=== PATIENT | male | born 1960 | race Two or more races ===

== ENCOUNTER 2017-04-07 17:54 | Emergency (ER) | payer OTHER ==
[~2017-04-07] VITALS: Ht 172.7 cm; Wt 102.1 kg
[~2017-04-07 17:54] MED LIST: ASPI-1169 PO; CARV12.5 PO; DIVA500T2 PO; DOCU-141 PO; DOXA8TAB79 PO; HYDR-552 PO; LEVE750T4 PO; LEVO750T21 PO; LORA-259 PO; PRAV20TA PO
--- NOTE | 2017-04-07 18:29 | NUR ---
DR ALANIZ ON THE PHONE WITH THE NURSE AT [facility] REGARDING WHY PATIENT WAS BROUGHT TO THE EMERGENCY ROOM.
--- NOTE | 2017-04-07 18:44 | NUR ---
RECIEVED PT TO ED BED 04. BB PRIVATE EMS FROM [facility] FOR S/P UNWITNESSED FALL. FELL OFF WHEELCHAIR, LANDED ON HIS HEAD PER REPORT. PT IS A/OX1-2, PT STATED THAT HE PASSED OUT. HE IS COMPLAINING OF BILATERAL ARM PAIN. NAD VSS RR EVEN AND UNLABORED. KEPT WARM AND COMFORTABLE. SEEN AND EVALUATED BY DR ALANIZ
--- NOTE | 2017-04-07 19:01 | NUR ---
RECEIVED REPORT FROM ORLANDO JOSÉ.
--- NOTE | 2017-04-07 19:08 | NUR ---
PT TO CT.
--- NOTE | 2017-04-07 19:20 | NUR ---
PT RETURNED FROM CT.
--- NOTE | 2017-04-07 20:16 | NUR ---
REQUESTED TRANSPORTATION FOR PATIENT WITH [facility], GOING BACK TO SNF
[2017-04-07] MEDS ORDERED: LORAZEPAM 1 MG TABLET PO ONE (21:00)
[2017-04-07] MEDS ORDERED: LORAZEPAM 1 MG TABLET ONE (21:05)
--- NOTE | 2017-04-07 22:09 | NUR ---
REPORT GIVEN TO CHARU PUENTE FOR THANH. PT VSS. PT AWARE OF TRANSFER. PT TO BE TRANSFERRED VIA GURNEY. PT WITH ALL BELONGINGS. D/C PAPERS WITH CHARU. CINDI TOOK OVER CARE
[2017-04-07 22:12] VITALS: BP 104/73
== END 2017-04-07 22:09 | disposition home or self-care (01) ==
LOC: ER 17:58
DX: S09.8XXA Other specified injuries of head, initial encounter (principal); F03.90 Unspecified dementia, unspecified severity, without behavioral disturbance, psychotic disturbance, mood disturbance, and anxiety; I10 Essential (primary) hypertension; Z79.82 Long term (current) use of aspirin; Z88.0 Allergy status to penicillin; W05.0XXA Fall from non-moving wheelchair, initial encounter; Y93.89 Activity, other specified; Y92.89 Other specified places as the place of occurrence of the external cause; Y99.8 Other external cause status
CPT/HCPCS: 70450-TC; 72125-TC; A4606; Z7610

== ENCOUNTER 2020-03-25 13:34 | Inpatient (IN) | payer MEDICAID, OTHER ==
[~2020-03-25] VITALS: Ht 177.8 cm; Wt 90.3 kg
[~2020-03-25 13:34] MED LIST changes: +HYDR-4384 PO; -HYDR-552 PO
--- NOTE | 2020-03-25 13:50 | NUR ---
C/O WEAKNESS X 2 DAYS; EXPOSED TO A POSTIVE COVID PATIENT. PATIENT A/OX2, VERBALLY RESPONSIVE BUT HAS EPISODE OF CONFUSION. 88% ON ROOM AIR. PLACED ON 4LPM VIA NC WITH SPO2 OF 100%. ATTACHED TO THE BUSINESS SUPPORT.
[2020-03-25] MEDS ORDERED: NA P133E RC (14:07)
[2020-03-25] MEDS ORDERED: SENN-175 PO (14:07)
[2020-03-25] MEDS ORDERED: GABA300C PO (14:07)
[2020-03-25] MEDS ORDERED: ACET325T53 PO (14:07)
[2020-03-25] MEDS ORDERED: BISA10SU11 RC (14:07)
[2020-03-25] MEDS ORDERED: FOLI0.8C PO (14:07)
[2020-03-25] MEDS ORDERED: ATOR10TA PO (14:07)
[2020-03-25] MEDS ORDERED: ESCI10TA PO (14:07)
[2020-03-25] MEDS ORDERED: MAGN400O6 PO (14:07)
[2020-03-25] MEDS ORDERED: CYAN-51 PO (14:07)
[2020-03-25] MEDS ORDERED: CLON1TAB PO (14:07)
[2020-03-25] MEDS ORDERED: ACETAMINOPHEN ES 500 MG TABLET ONE (14:27)
[2020-03-25] MEDS ORDERED: ACETAMINOPHEN ES 500 MG TABLET PO ONE (14:30)
[2020-03-25] MEDS ORDERED: IV NS 0.9% 1,000 ML BAG IV ONE (14:30)
[2020-03-25 14:38] LABS: BASOPHILS % (AUTO) 0.5 % (0.0-2.0); EOSINOPHILS % (AUTO) 4.2 % (0.0-6.0); HEMATOCRIT 44 % (39-51); HEMOGLOBIN 14.2 g/dL (13.5-17.5); LYMPHOCYTES # (AUTO) 2.2 /CMM (0.8-4.8); LYMPHOCYTES % (AUTO) 31.6 % (20.0-44.0); MEAN CORPUSCULAR HGB CONC 33 g/dl (31.0-36.0); MEAN CORPUSCULAR VOLUME 102 fL (80-96); MONOCYTES # (AUTO) 0.9 /CMM (0.1-1.30); MONOCYTES % (AUTO) 12.5 % (2.0-12.0); NEUTROPHILS # (AUTO) 3.5 /CMM (1.8-8.9); NEUTROPHILS % (AUTO) 51.2 % (43.0-81.0); PLATELET COUNT (AUTO) 217 /CMM (150-450); RED BLOOD CELL COUNT(AUTO) 4.29 MIL/uL (4.5-6.0); WHITE BLOOD COUNT (AUTO) 6.9 K/uL (4.3-11.0)
[2020-03-25 15:11] LABS: D-DIMER 0.5 mg/L(FEU (0.17-0.50)
--- NOTE | 2020-03-25 15:15 | NUR ---
COVID RESULT NEGATIVE PER MAIN LAB
[2020-03-25] MEDS ORDERED: LEVOFLOXACIN 750 MG /D5W 150ML 150 ML IV ONE (15:29)
[2020-03-25] MEDS ORDERED: LEVOFLOXACIN 750 MG /D5W 150ML PIGGYBACK IV ONE (15:30)
--- NOTE | 2020-03-25 15:38 | NUR ---
CALLED DR. MARTINEZ [phone] PT TO BE PRESENTED TO [facility].
[2020-03-25 15:44] LABS: ALANINE AMINOTRANSFERASE 46 U/L (12-78); ALBUMIN 3.2 g/dL (3.4-5.0); ALKALINE PHOSPHATASE 67 U/L (46-116); ASPARTATE AMINOTRANSFERASE 28 U/L (15-37); B-TYPE NATRIURETIC PEPTIDE 21 PG/ML (0-125); BILIRUBIN,DIRECT 0.1 mg/dL (0.0-0.2); BILIRUBIN,TOTAL 0.3 mg/dL (0.2-1.0); CALCIUM, SERUM 8.9 mg/dL (8.5-10.1); CARBON DIOXIDE 28 mmol/L (21-32); CHLORIDE 106 mmol/L (98-107); CREATININE 1.1 mg/dL (0.6-1.3); GLUCOSE 94 mg/dL (74-106); POTASSIUM 4.6 mmol/L (3.5-5.1); SODIUM SERUM 141 mmol/L (136-145); TOTAL PROTEIN, SERUM 7.5 g/dL (6.4-8.2); UREA NITROGEN, BLOOD 11 mg/dL (7-18)
--- NOTE | 2020-03-25 16:33 | NUR ---
COVID PCR SWAB SENT TO LAB. SKIN CARE PROVIDED. PATIENT HAS TENDENCY TO STRIKE OUT DURING ADL CARE.
[2020-03-25] MEDS ORDERED: DEXAMETHASONE SOD PHOSPHATE 4 MG/ML VIAL IV ONE (17:30)
[2020-03-25] MEDS ORDERED: DEXAMETHASONE SOD PHOSPHATE 10 MG/ML VIAL ONE (17:51)
[2020-03-25] MEDS ORDERED: BISACODYL SUPP (10 MG) 10 MG/SUPP.RECT SUPP.RECT RC PRN (18:00)
[2020-03-25] MEDS ORDERED: ONDANSETRON HCL/PF 4 MG/2 ML VIAL IVP PRN (18:00)
[2020-03-25] MEDS ORDERED: ACETAMINOPHEN 325 MG TABLET PO PRN (18:00)
--- NOTE | 2020-03-25 19:19 | NUR ---
REPORT GIVEN TO BOGDAN PERRY FOR THANH
--- NOTE | 2020-03-25 19:39 | NUR ---
PATIENT AAOX2. PATIENT STATES, "I AM GOOD NOW THAT I HAVE MY MILK. I AM SUPERMAN". PATIENT CURRENTLY HAS NO COMPLAINTS. PATIENT IS BREATHING EVENLY AND UNLABORED ON ROOM AT 94%.
--- NOTE | 2020-03-25 19:46 | NUR ---
UNABLE TO GET BLOOD PRESSURE. PATIENT IS CONSTANTLY MOVING.
[2020-03-25 19:52] LABS: C-REACTIVE PROTEIN 0.5 mg/dL (0.0-0.9)
[2020-03-25] MEDS ORDERED: IV NS 0.9% 1,000 ML IV ONE (20:30)
[2020-03-25] MEDS: CEFTRIAXONE 1 G in IV D5W 50 ML IV SCH (21:34)
--- NOTE | 2020-03-25 21:45 | NUR ---
PATIENT CHANGED INTO NEW GOWN AND PROVIDED WITH CLEAN BED SHEET. PATIENT IS GIVEN BLANKET FOR COMFORT. PATIENT IS BREATHING EVENLY AND UNLABORED ON 4L OF N/C 99%. PATIENT IS CALM. PATIENT NOT IN ANY DISTRESS. WILL CONTINUE TO MONITOR PATIENT CLOSELY.
[2020-03-25] MEDS: GABAPENTIN 300 MG CAPSULE PO SCH (21:58)
[2020-03-25] MEDS ORDERED: CEFTRIAXONE 1GM BAG (ER ONLY) 50 ML IV ONE (22:20)
[2020-03-25] MEDS ORDERED: GABAPENTIN 300 MG CAPSULE ONE (22:22)
[2020-03-25] MEDS ORDERED: ESCITALOPRAM OXALATE (10 MG) 10 MG TABLET ONE (22:23)
[2020-03-25] MEDS: SENNOSIDES 8.6 MG TABLET PO SCH (22:54)
[2020-03-25] MEDS: ESCITALOPRAM OXALATE (10 MG) 10 MG TABLET PO SCH (22:54)
[2020-03-25] MEDS: ATORVASTATIN 10 MG TABLET PO SCH (22:54)
--- NOTE | 2020-03-25 23:57 | NUR ---
PATIENT IS AWAKE, MOVING EXTREMITIES AND YELLING "POW". PATIENT STATES THAT HE IS SHOOTING A GUN AT THE BOX. PATIENT IS BREATHING EVENLY AND UNLABORED ON ROOM AIR AT 94%. PATIENT KEEPS REMOVING 4L OF N/C. PATIENT IS CONNECTED TO THE MONITOR. SIDE RAILS ARE UP FOR SAFETY. PATIENT'S BED AT THE LOWEST POSITION.
--- NOTE | 2020-03-26 00:56 | NUR ---
BED ASSIGNMENT 206
[2020-03-26] MEDS ORDERED: HALOPERIDOL LACTATE INJ 5 MG/ML VIAL ONE (01:48)
[2020-03-26] MEDS ORDERED: HALOPERIDOL LACTATE INJ 5 MG/ML VIAL IM PRN (02:00)
[2020-03-26 03:30] VITALS: BP 123/80
--- NOTE | 2020-03-26 03:49 | NUR ---
REPORT GIVEN TO ARNAV PERRY FOR THANH.
--- NOTE | 2020-03-26 04:18 | NUR ---
PATIENT PROVIDED WITH PERICARE. PATIENT CHANGED INTO CLEAN SHEETS AND CLEAN GOWN. PATIENT PROVIDED WITH WARM BLANKETS AND PILLOW FOR COMFORT. PATIENT IS CALM, AWAKE, AND COOPERATIVE. PATIENT IS BREATHING EVENLY AND UNLABORED ON ROOM AIR. AT 96%. CONNECTED TO THE HEALTH ECONOMIST FOR FURTHER MONITORING.
--- NOTE | 2020-03-26 04:28 | NUR ---
PATIENT TAKEN UP TO ASSIGN ROOM FOR THANH.
[2020-03-26] MEDS: GABAPENTIN 300 MG CAPSULE PO SCH ×3 (04:49→21:41)
--- NOTE | 2020-03-26 06:08 | NUR ---
PUT IN ORDER FOR SOFT WRIST RESTRAINTS. DR. GORMAN NOTIFIED. PT IN ORDER FOR SWALLOW EVALUATION TEST.
--- NOTE | 2020-03-26 07:06 | NUR ---
OPERATIONAL ASSISTANT OPENING NOTE RECEIVED PT RESTING COMFORTABLY IN BED AT THIS TIME. PT AOX2. NO SOB NOTED, NO S/S OF ANY ACUTE DISTRESS NOTED, NO C/O PAIN AT THIS TIME. PT NOTED ON OXYGEN 2LPM VIA SATURATING AT 98%. PT ON EXTERNAL TELE APPRENTICE PAINTER NECKTIES READING SR 70. IV ACCESS NOTED IN RAC G#20, INTACT, PATENT AND FLUSHING WELL. PT NOTED ON BILATERAL SOFT WRIST RESTRAINS. . ASPIRATIONS AND SAFETY PRECAUTIONS IN PLACE AND MAINTAINED AT ALL TIMES. BED IN LOWEST LOCKED POSITION, SIDE RAILS UP, HOB ELEVATED, TABLE AND CALL LIGHT WITHIN REACH. WILL CONTINUE TO MONITOR.
--- NOTE | 2020-03-26 07:33 | NUR ---
SHAKER TENDER CLOSING NOTES PT LAYING IN BED. ASLEEP. PT ALERT AND ORIENTED X2. PT ON 2L NASAL CANNULA. TOLERATING WELL. NO SOB. EVEN AND UNLABORED BREATHING NOTED. SOFT WRIST RESTRAINTS ORDER, APPLIED. RAC #18. PATENT, FLUSHING WELL. NO OCCLUSIONS. NO INFILTRATION. VITAL SIGNS: 123/80, PULSE 72, RESP 20,, TEMP 98, ULSE OX 94. WILL ENDORSE TO NEXT SHIFT. WILL CONTINUE PLAN OF CARE.
[2020-03-26 08:34] LABS: BASOPHILS % (AUTO) 0.3 % (0.0-2.0); HEMATOCRIT 42 % (39-51); HEMOGLOBIN 13.5 g/dL (13.5-17.5); LYMPHOCYTES # (AUTO) 1.4 /CMM (0.8-4.8); LYMPHOCYTES % (AUTO) 17.9 % (20.0-44.0); MEAN CORPUSCULAR HGB CONC 32 g/dl (31.0-36.0); MEAN CORPUSCULAR VOLUME 100 fL (80-96); MONOCYTES # (AUTO) 0.4 /CMM (0.1-1.30); MONOCYTES % (AUTO) 5.6 % (2.0-12.0); NEUTROPHILS # (AUTO) 6.1 /CMM (1.8-8.9); NEUTROPHILS % (AUTO) 76.2 % (43.0-81.0); PLATELET COUNT (AUTO) 209 /CMM (150-450); RED BLOOD CELL COUNT(AUTO) 4.18 MIL/uL (4.5-6.0); WHITE BLOOD COUNT (AUTO) 7.9 K/uL (4.3-11.0)
[2020-03-26 09:00] VITALS: BP 113/60
[2020-03-26] MEDS: FOLIC ACID 1 MG TABLET PO SCH (09:46)
[2020-03-26] MEDS: CYANOCOBALAMIN 500 MCG TABLET PO SCH (09:46)
[2020-03-26] MEDS: DEXAMETHASONE SOD PHOSPHATE 4 MG/ML VIAL IV SCH (09:46)
[2020-03-26] MEDS: ASPIRIN 81 MG TAB.CHEW PO SCH (09:46)
[2020-03-26] MEDS: clonazePAM 1 MG TABLET PO SCH ×2 (09:47→16:27)
[2020-03-26] MEDS: ENOXAPARIN SODIUM 40 MG/0.4 ML DISP.SYRIN SQ SCH (09:48)
[2020-03-26] MEDS: LEVETIRACETAM (250 MG) 250 MG TABLET PO SCH ×2 (11:25→16:28)
[2020-03-26 11:30] VITALS: BP 100/73
[2020-03-26 12:15] LABS: ALBUMIN 3.4 g/dL (3.4-5.0); BILIRUBIN,TOTAL 0.3 mg/dL (0.2-1.0); MAGNESIUM 2.1 mg/dL (1.8-2.4); PHOSPHORUS 2.2 mg/dL (2.5-4.9); POTASSIUM 4.1 mmol/L (3.5-5.1); TOTAL PROTEIN, SERUM 7.6 g/dL (6.4-8.2)
[2020-03-26 16:00] VITALS: BP 104/64
[2020-03-26] MEDS ORDERED: LEVOFLOXACIN 500 MG /D5W 100ML 500 MG in PREMIX 1 EA IV SCH (16:00)
[2020-03-26] MEDS ORDERED: K PHOS NEUTRAL 250 MG TABLET PO ONE (16:00)
[2020-03-26 17:42] LABS: CALCIUM, SERUM 9.1 mg/dL (8.5-10.1); CREATININE 0.9 mg/dL (0.6-1.3)
[2020-03-26] MEDS ORDERED: AZITHROMYCIN 250 MG TABLET PO SCH (18:00)
--- NOTE | 2020-03-26 19:05 | NUR ---
RN NOTES: RECEIVED AWAKE ON BED, SEMI FOWLERS POSITION, HE IS REMOVING HIS NASAL CANNULA, ON O2 AT 2L/MIN PUT IT BACK, HE HAS BILATERAL SOFT RESTRAINTS, CHECK CIRCULATION, NO REDNESS OR DISCOLORATION NOTED ON RIGHT AND LEFT HAND, MONITOR CIRCULATION, RAC G#20 PATENT,ORIENTED TO UNIT AND STAFF, FALL SAFETY AND ASPIRATION PRECAUTION OBSERVED, KEPT CALL LIGHT WITHIN EASY REACH. ON CLOSE WATCH.ON TELE MONITOR.
--- NOTE | 2020-03-26 19:07 | NUR ---
RN CLOSING NOTES PT AWAKE IN BED AT THIS TIME. PT REMAINED STABLE THROUGHOUT SHIFT. ALL CARE, NEED, MEDICATIONS AND TREATMENT ADMINISTERED ANTICIPATED PER ORDER. PT KEPT CLEAN AND DRY. SAFETY PRECAUTION IN PLACE AND MAINTAINED AT ALL TIMES. RESTRAINTS ASSESSED Q2HRS THROUGH OUT SHIFT. GOOD CIRCULATION NOTED, PULSES PRESENT BILATERALLY, CAPILLARY REFILL <3SECONDS. SKIN AROUND RESTAINTS REMAIN INTACT. BED IN LOWEST LOCKED POSITION, HOB ELEVATED, SIDE RAILS UP X 2, CALL LIGHT AND TABLE WITHIN REACH. ENDORSED TO OYSTER PICKER NURSE FOR THANH
[2020-03-26 19:30] VITALS: BP 103/65
[2020-03-26] MEDS: CEFTRIAXONE 1 G in IV D5W 50 ML IV SCH (21:19)
--- NOTE | 2020-03-26 21:23 | NUR ---
RN NOTES: DUE MEDICATION GIVEN ABLE TO SWALLOW MORE WELL WITH THE AID OF APPLE SAUCE , COOPERATIVE, NO COMBATIVE BEHAVIOR NOTED AT THIS TIME, HE DOESN'T PULL OUT HIS TUBING.
[2020-03-26] MEDS: ATORVASTATIN 10 MG TABLET PO SCH (21:41)
[2020-03-26] MEDS: SENNOSIDES 8.6 MG TABLET PO SCH (21:41)
[2020-03-26] MEDS: ESCITALOPRAM OXALATE (10 MG) 10 MG TABLET PO SCH (21:41)
[2020-03-26 23:30] VITALS: BP 117/72
--- NOTE | 2020-03-27 00:25 | NUR ---
RN NOTES; ASLEEP AT SHORT INTERVALS.ON CLOSE WATCH.
[2020-03-27 03:30] VITALS: BP 97/60
--- NOTE | 2020-03-27 04:10 | NUR ---
RN NOTES: ABLE TO SLEEP AND REST AT SHORT INTERVALS, NO CHEST PAIN, REMAIN COMFORTABLE, NO CHANGE IN CONDITION, HE STILL REMOVE HIS O2 INHALATION IN BETWEEN, EXPLAINED TO HIM THAT HE NEEDS IT.CHECK AT FREQUENT INTERVAL, FALL AND SAFETY PRECAUTION OBSERVED.
[2020-03-27] MEDS: GABAPENTIN 300 MG CAPSULE PO SCH ×3 (04:56→21:20)
[2020-03-27 07:40] LABS: CALCIUM, SERUM 8.2 mg/dL (8.5-10.1); MAGNESIUM 2.1 mg/dL (1.8-2.4); PHOSPHORUS 3.1 mg/dL (2.5-4.9); POTASSIUM 3.6 mmol/L (3.5-5.1)
--- NOTE | 2020-03-27 07:47 | NUR ---
RN NOTES: STILL ASLEEP, NEEDS ATTENDED, MORNING CARE DONE, ON TELE MONITOR SR-62, VOIDED 2X, NO BM, FOR CXR AND BLOOD TEST TODAY, ENDORSED FOR CONTINUITY OF CARE.
[2020-03-27 07:55] LABS: BASOPHILS % (AUTO) 0.1 % (0.0-2.0); EOSINOPHILS % (AUTO) 0.1 % (0.0-6.0); HEMATOCRIT 38 % (39-51); HEMOGLOBIN 12.4 g/dL (13.5-17.5); LYMPHOCYTES # (AUTO) 1.8 /CMM (0.8-4.8); LYMPHOCYTES % (AUTO) 18.6 % (20.0-44.0); MEAN CORPUSCULAR HGB CONC 33 g/dl (31.0-36.0); MEAN CORPUSCULAR VOLUME 100 fL (80-96); MONOCYTES # (AUTO) 1.6 /CMM (0.1-1.30); MONOCYTES % (AUTO) 15.8 % (2.0-12.0); NEUTROPHILS # (AUTO) 6.5 /CMM (1.8-8.9); NEUTROPHILS % (AUTO) 65.4 % (43.0-81.0); PLATELET COUNT (AUTO) 229 /CMM (150-450); RED BLOOD CELL COUNT(AUTO) 3.77 MIL/uL (4.5-6.0); WHITE BLOOD COUNT (AUTO) 9.9 K/uL (4.3-11.0)
--- NOTE | 2020-03-27 08:00 | NUR ---
RN Opening note Received patient in bed, awaken able to responds all stimuli, Pt does no appears pain or distress. Skin is warm to touch keep clean/dry intact IV site on right AC, respiratory even and unlabored with oxygen at 2L via NC. Kept locked bed with elevated HOB for aspiration precaution and ensure airway and lowest bed foe safety. Call light within reach, will continue to monitor.
[2020-03-27] MEDS: CYANOCOBALAMIN 500 MCG TABLET PO SCH (09:03)
[2020-03-27] MEDS: ASPIRIN 81 MG TAB.CHEW PO SCH (09:03)
[2020-03-27] MEDS: DEXAMETHASONE SOD PHOSPHATE 4 MG/ML VIAL IV SCH (09:03)
[2020-03-27] MEDS: FOLIC ACID 1 MG TABLET PO SCH (09:03)
[2020-03-27] MEDS: clonazePAM 1 MG TABLET PO SCH ×2 (09:03→16:29)
[2020-03-27] MEDS: ENOXAPARIN SODIUM 40 MG/0.4 ML DISP.SYRIN SQ SCH (09:04)
[2020-03-27] MEDS: LEVETIRACETAM (250 MG) 250 MG TABLET PO SCH ×2 (10:33→16:29)
[2020-03-27 10:52] LABS: THYROID STIMULATING HORMONE 0.356 uIU/mL (0.358-3.74)
[2020-03-27 12:42] LABS: LYMPHOCYTES % (MANUAL) 19 % (16-48); MONOCYTES % (MANUAL) 16 % (0-11.0); NEUTROPHILS % (MANUAL) 65 (42-76)
--- NOTE | 2020-03-27 18:30 | NUR ---
RN closing Patient in bed resting, does no appears distress or discomfort. Skin is warm to touch, keep clean/dry, intact midline on right upper arm. Respiratory even and unlabored on room air O2sat 94-99%. Kept elevated HOB for ensure air way and aspiration precaution and lowest bed for safety. Call light within reach, will endorse restaurant shift leader
[2020-03-27 20:00] VITALS: BP 123/81
--- NOTE | 2020-03-27 20:00 | NUR ---
tele shop hand initial notes received pt in bed and been screaming , alert to his name but not in place. re-oriented where he at. no signs of any discomfort or any acute distress noted. I ask him what he needs then he stated "he wants to eat something. Gave apple sauce and apple juice and tolerated well . pt also on soft wrist restrain both hand for pt safety, pulse present and skin warm to touch. kept him on semi fowlers position with side rails x2 up . tele Sinus Rhythm per monitor. will continue monitoring.
[2020-03-27] MEDS: CEFTRIAXONE 1 G in IV D5W 50 ML IV SCH (21:12)
[2020-03-27] MEDS: ATORVASTATIN 10 MG TABLET PO SCH (21:20)
[2020-03-27] MEDS: SENNOSIDES 8.6 MG TABLET PO SCH (21:20)
[2020-03-27] MEDS: ESCITALOPRAM OXALATE (10 MG) 10 MG TABLET PO SCH (21:20)
[2020-03-27] MEDS: LORAZEPAM INJ 2 MG/ML VIAL IV PRN (22:29)
--- NOTE | 2020-03-27 22:30 | NUR ---
TELE/RN NOTES PATIENT VERY AGITATED, RESTLESS AND SCREAMING. PATIENT GIVEN ATIVAN 0.5 MG IVP. PATIENT V/S ARE STABLE. WILL CONTINUE TO MONITOR.
[2020-03-28] VITALS (7 sets, daily range): BP systolic 122–142; BP diastolic 80–103
[2020-03-28] MEDS: GABAPENTIN 300 MG CAPSULE PO SCH ×3 (05:26→21:37)
[2020-03-28 06:50] LABS: BASOPHILS % (AUTO) 0.2 % (0.0-2.0); EOSINOPHILS % (AUTO) 0.2 % (0.0-6.0); HEMATOCRIT 40 % (39-51); HEMOGLOBIN 13.2 g/dL (13.5-17.5); LYMPHOCYTES # (AUTO) 1.6 /CMM (0.8-4.8); LYMPHOCYTES % (AUTO) 17.4 % (20.0-44.0); MEAN CORPUSCULAR HGB CONC 33 g/dl (31.0-36.0); MEAN CORPUSCULAR VOLUME 99 fL (80-96); MONOCYTES # (AUTO) 1.9 /CMM (0.1-1.30); MONOCYTES % (AUTO) 20.3 % (2.0-12.0); NEUTROPHILS # (AUTO) 5.8 /CMM (1.8-8.9); NEUTROPHILS % (AUTO) 61.9 % (43.0-81.0); PLATELET COUNT (AUTO) 229 /CMM (150-450); RED BLOOD CELL COUNT(AUTO) 4.08 MIL/uL (4.5-6.0); WHITE BLOOD COUNT (AUTO) 9.4 K/uL (4.3-11.0)
[2020-03-28 07:16] LABS: CALCIUM, SERUM 8.4 mg/dL (8.5-10.1); CREATININE 0.9 mg/dL (0.6-1.3); PHOSPHORUS 2.8 mg/dL (2.5-4.9); POTASSIUM 3.7 mmol/L (3.5-5.1)
--- NOTE | 2020-03-28 07:36 | NUR ---
REGIONAL ECONOMIC LIAISON OPENING NOTES RECEIVED PATIENT IN BED, ASLEEP. PATIENT ON OXYGEN THERAPY AT 2 LPM VIA NASAL CANULA; BREATHING EVEN AND UNLABORED AT THIS TIME. NO SOB NOTED. TELE MONITOR WITH A CURRENT READING OF SR 68. NO S/S OF PAIN SUCH FACIAL GRIMACING, GUARDING OR MOANING. R HAND IV ACCESS G # 20 PRESENT AND INTACT. SAFETY PRECAUTIONS IN PLACE; BED IN LOW POSITION AND LOCKED, RAILS UP X2, CALL LIGHT WITHIN REACH. WILL CONTINUE TO MONITOR PATIENT.
--- NOTE | 2020-03-28 07:38 | NUR ---
tele crab meat processor closing notes pt back to sleep after morning care done . stable jose the night except some confusion and anxiety. not in any distress noted. kept him warm and comfortable at all times. tele SR heart rate 74 per monitor. endorse to am nurse for continuity of care.
[2020-03-28] MEDS: LEVETIRACETAM (250 MG) 250 MG TABLET PO SCH ×2 (08:56→16:21)
[2020-03-28] MEDS: FOLIC ACID 1 MG TABLET PO SCH (08:57)
[2020-03-28] MEDS: DEXAMETHASONE SOD PHOSPHATE 4 MG/ML VIAL IV SCH (08:57)
[2020-03-28] MEDS: clonazePAM 1 MG TABLET PO SCH ×2 (08:57→16:21)
[2020-03-28] MEDS: CYANOCOBALAMIN 500 MCG TABLET PO SCH (08:57)
[2020-03-28] MEDS: ASPIRIN 81 MG TAB.CHEW PO SCH (08:57)
[2020-03-28] MEDS: ENOXAPARIN SODIUM 40 MG/0.4 ML DISP.SYRIN SQ SCH (09:01)
--- NOTE | 2020-03-28 18:50 | NUR ---
WIRE RIGGER CLOSING NOTES PATIENT REMAINS IN BED, ASLEEP. PATIENT ON OXYGEN THERAPY AT 2 LPM VIA NASAL CANULA; BREATHING EVEN AND UNLABORED DURING THE DAY. NO SOB NOTED. TELE MONITOR WITH A CURRENT READING OF SR 62. NO COMPLAINS OF PAIN DURING SHIFT. R HAND IV ACCESS G # 20 PRESENT AND INTACT. ALL NEEDS ATTENDED THROUGHOUT THE DAY. SAFETY PRECAUTIONS IN PLACE; BED IN LOW POSITION AND LOCKED, RAILS UP X2, CALL LIGHT WITHIN REACH. WILL ENDORSE TO BLOCKER AND CUTTER CONTACT LENS NURSE.
--- NOTE | 2020-03-28 20:47 | NUR ---
GEOPHYSICAL LABORATORY DIRECTOR OPENING NOTES PT RECEIVED AT BEDSIDE. PT ALERT AND ORIENTED X2. CALM, COOPERATIVE. NO COMPLAINTS, NO SIGNS OF DISTRESS. PT ON 2L NASAL CANNULA. TOLERATING WELL. NO SOB NOTED. EVEN AND UNLABORED BREATHING NOTED. 99% OXYGEN SATURATION. SINUS RYTHM 62. RIGHT HAND #20. INTACT, PATENT, FLUSHING WELL. NO OCCLUSIONS, NO SIGNS OF INFILTRATION. WILL CONTINUE TO MONITOR FOR O2 TITRATION. WILL CONTINUE PLAN OF CARE.
[2020-03-28] MEDS: SENNOSIDES 8.6 MG TABLET PO SCH (21:37)
[2020-03-28] MEDS: ATORVASTATIN 10 MG TABLET PO SCH (21:37)
[2020-03-28] MEDS: ESCITALOPRAM OXALATE (10 MG) 10 MG TABLET PO SCH (21:37)
[2020-03-28] MEDS: CEFTRIAXONE 1 G in IV D5W 50 ML IV SCH (21:37)
[2020-03-29] VITALS: BP 124/83
[2020-03-29 04:42] VITALS: BP 131/89
[2020-03-29] MEDS: GABAPENTIN 300 MG CAPSULE PO SCH ×3 (05:08→21:30)
--- NOTE | 2020-03-29 06:20 | NUR ---
FIRE ASSISTANT CLOSING NOTES PT LAYING IN BED. AWAKE, COOPERATIVE, CALM. ALERT AND ORIENTED X2. PT COMPLIANT WITH MEDICATIONS. ON 3L NASAL CANNULA. TOLERATING WELL. O2 SATURATION 96%. NO SOB NOTED. EVEN AND UNLABORED BREATHING NOTED. NO COMPLAINTS. NO SIGNS OF DISTRESS. NO SIGNIFICANT CHANGES. BED LOCK. BED ALARM ON. CALL LIGHT WITHIN REACH. WILL ENDORSE TO NEXT SHIFT. WILL CONTINUE TO MONITOR. PER DR. OSORIO RESPIRATORY STAPLETON CLEARED FOR D/C ON LOW FLOW O2 TO COMPLETE THERAPY OUTPATIENT. WILL CONTINUE PLAN OF CARE
[2020-03-29 07:05] LABS: BASOPHILS % (AUTO) 0.2 % (0.0-2.0); EOSINOPHILS % (AUTO) 0.3 % (0.0-6.0); HEMATOCRIT 43 % (39-51); LYMPHOCYTES # (AUTO) 1.4 /CMM (0.8-4.8); LYMPHOCYTES % (AUTO) 17.2 % (20.0-44.0); MEAN CORPUSCULAR HGB CONC 32 g/dl (31.0-36.0); MEAN CORPUSCULAR VOLUME 100 fL (80-96); MONOCYTES # (AUTO) 1.6 /CMM (0.1-1.30); NEUTROPHILS # (AUTO) 5.2 /CMM (1.8-8.9); NEUTROPHILS % (AUTO) 63.3 % (43.0-81.0); PLATELET COUNT (AUTO) 228 /CMM (150-450); RED BLOOD CELL COUNT(AUTO) 4.33 MIL/uL (4.5-6.0); WHITE BLOOD COUNT (AUTO) 8.2 K/uL (4.3-11.0)
--- NOTE | 2020-03-29 07:33 | NUR ---
BUSINESS OPERATIONS COORDINATOR OPENING NOTE RECEIVED PATIENT RESTING IN BED. ALERT AND ORIENTED X 2. CONTINUES ON O2 3L VIA NC WITH NO S/S RESPIRATORY DISTRESS NOTED. NO S/S PAIN NOTED. IV ACCESS TO RIGHT HAND INTACT AND PATENT. CALL LIGHT WITHIN REACH. ASPIRATION, FALL AND SAFETY PRECAUTIONS MAINTAINED. WILL CONTINUE TO MONITOR.
[2020-03-29 07:53] LABS: CALCIUM, SERUM 8.5 mg/dL (8.5-10.1); MAGNESIUM 1.9 mg/dL (1.8-2.4); PHOSPHORUS 2.9 mg/dL (2.5-4.9); POTASSIUM 3.5 mmol/L (3.5-5.1)
[2020-03-29 08:00] VITALS: BP 128/83
[2020-03-29] MEDS: ASPIRIN 81 MG TAB.CHEW PO SCH (08:04)
[2020-03-29] MEDS: LEVETIRACETAM (250 MG) 250 MG TABLET PO SCH ×2 (08:04→16:02)
[2020-03-29] MEDS: CYANOCOBALAMIN 500 MCG TABLET PO SCH (08:04)
[2020-03-29] MEDS: clonazePAM 1 MG TABLET PO SCH ×2 (08:04→16:01)
[2020-03-29] MEDS: FOLIC ACID 1 MG TABLET PO SCH (08:05)
[2020-03-29] MEDS: DEXAMETHASONE SOD PHOSPHATE 4 MG/ML VIAL IV SCH (08:05)
[2020-03-29] MEDS: ENOXAPARIN SODIUM 40 MG/0.4 ML DISP.SYRIN SQ SCH (08:08)
[2020-03-29] MEDS: ACETAMINOPHEN 325 MG TABLET PO PRN (08:08)
[2020-03-29 11:52] LABS: LYMPHOCYTES % (MANUAL) 17 % (16-48); MONOCYTES % (MANUAL) 19 % (0-11.0); NEUTROPHILS % (MANUAL) 63 (42-76)
[2020-03-29 11:53] LABS: BAND % (MANUAL) 1 % (0.0-5.0)
[2020-03-29 12:00] VITALS: BP 108/60
[2020-03-29 16:00] VITALS: BP 113/74
--- NOTE | 2020-03-29 18:18 | NUR ---
AIR CONDITIONING EQUIPMENT MECHANIC CLOSING NOTE PATIENT IS CURRENTLY RESTING IN BED. ALERT AND ORIENTED X 2-3. YELLING OUT AT TIMES. COMPLAINTS OF MILD BACK PAIN THIS SHIFT. MEDICATED WITH POSITIVE EFFECT. CONTINUES WITH BILATERAL SOFT WRIST RESTRAINTS FOR SAFETY WITH NO S/S OF SKIN INJURIES, PAIN OR INCREASED BEHAVIORS. CONTINUES ON O2 3L VIA NC WITH NO S/S OF RESPIRATORY DISTRESS NOTED. VS: BP 113/74 HR 62 RR 18 T 98.2 O2 SAT 98%. CALL LIGHT WITHIN REACH. ASPIRATION, SAFETY AND FALL PRECAUTIONS MAINTAINED. WILL ENDORSE PLAN OF CARE TO ONCOMING SHIFT RN.
[2020-03-29 20:00] VITALS: BP 140/78
--- NOTE | 2020-03-29 21:04 | NUR ---
DIRECTOR SPORTS NOTE INFORMED DR. NOLBERTO EDMONDSON THAT PATIENT IS REMOVING IV LINES, CONTINUOUSLY GETTING OUT OF BED AND SHOUTING. PATIENT HAS BEEN REORIENTED SEVERAL TIMES, EXPLAINED TO HOW TO USE CALL LIGHT, DISTRACTED WITH TELEVISION, AND CONTINUES BEHAVIOR THAT IS NOT HELPFUL FOR CARE. MD TELEPHONE ORDER BILATERAL SOFT WRIST. ORDER READ BACK NOTED AND CARRIED OUT.
--- NOTE | 2020-03-29 21:16 | NUR ---
MS RN OPENING NOTE RECEIVED PATIENT IN BED. A/OX2. PATIENT IS SHOUTING. ON OXYGEN 6L PER NASAL CANNULA. RESPIRATIONS ARE EVEN AND UNLABORED. NO S/S SOB NOTED. NO C/O PAIN AT THIS TIME. IN NO APPARENT DISTRESS. PATIENT REMOVED IV ACCESS. BED IS LOW AND LOCKED, HOB ELEVATED IN SEMI FOWLERS, SIDE RIALS UP X3, CALL LIGHT WITHIN REACH. WILL CONTINUE TO MONITOR THROUGHOUT SHIFT.
[2020-03-29] MEDS: ESCITALOPRAM OXALATE (10 MG) 10 MG TABLET PO SCH (21:30)
[2020-03-29] MEDS: ATORVASTATIN 10 MG TABLET PO SCH (21:30)
[2020-03-29] MEDS: SENNOSIDES 8.6 MG TABLET PO SCH (21:30)
[2020-03-30] MEDS: ACETAMINOPHEN 325 MG TABLET PO PRN ×2 (00:41→22:32)
[2020-03-30] MEDS: LORAZEPAM INJ 2 MG/ML VIAL IV PRN ×2 (00:50→11:47)
[2020-03-30] MEDS: GABAPENTIN 300 MG CAPSULE PO SCH ×3 (05:29→22:33)
--- NOTE | 2020-03-30 06:21 | NUR ---
MS RN CLOSING NOTE PATIENT RESTING IN BED. A/OX2.REMAINS ON OXYGEN 6L PER NASAL CANNULA. PATIENT CONTINUES TO REMOVE NASAL CANNULA BY TURNING HIS HEAD SIDE TO SIDE. NO RESP DISTRESS. NO PAIN NOTED. NO DISTRESS. NEW IV ACCESS IN LFA#22 PATENT AND SALINE LOCKED. BILATERAL SOFT WRIST RESTRAINT PRESENT, NO REDNESS NOTED, GOOD CAP REFILL. BED REMAINS LOW AND LOCKED, HOB ELEVATED IN SEMI FOWLERS, SIDE RIALS UP X3, CALL LIGHT WITHIN REACH. WILL ENDORSE TO NEXT SHIFT.
[2020-03-30 06:55] LABS: BASOPHILS % (AUTO) 0.2 % (0.0-2.0); EOSINOPHILS % (AUTO) 0.1 % (0.0-6.0); HEMATOCRIT 40 % (39-51); HEMOGLOBIN 13.1 g/dL (13.5-17.5); LYMPHOCYTES # (AUTO) 1.5 /CMM (0.8-4.8); LYMPHOCYTES % (AUTO) 23.7 % (20.0-44.0); MEAN CORPUSCULAR HGB CONC 33 g/dl (31.0-36.0); MEAN CORPUSCULAR VOLUME 99 fL (80-96); MONOCYTES # (AUTO) 1.4 /CMM (0.1-1.30); MONOCYTES % (AUTO) 22.7 % (2.0-12.0); NEUTROPHILS # (AUTO) 3.4 /CMM (1.8-8.9); NEUTROPHILS % (AUTO) 53.3 % (43.0-81.0); PLATELET COUNT (AUTO) 193 /CMM (150-450); RED BLOOD CELL COUNT(AUTO) 4.05 MIL/uL (4.5-6.0); WHITE BLOOD COUNT (AUTO) 6.3 K/uL (4.3-11.0)
--- NOTE | 2020-03-30 07:30 | NUR ---
PT RECEIVED RESTING COMFORTABLY IN BED. NO S/S OR C/O PAIN OR DISTRESS NOTED. SIDE RAILS UP X2, CALL LIGHT LEFT WITHIN REACH. WILL CONTINUE PLAN OF CARE.
[2020-03-30 08:15] LABS: CALCIUM, SERUM 8.1 mg/dL (8.5-10.1); CREATININE 0.9 mg/dL (0.6-1.3); MAGNESIUM 2.9 mg/dL (1.8-2.4); PHOSPHORUS 3.2 mg/dL (2.5-4.9); POTASSIUM 3.4 mmol/L (3.5-5.1)
[2020-03-30] MEDS: DEXAMETHASONE SOD PHOSPHATE 4 MG/ML VIAL IV SCH (09:44)
[2020-03-30] MEDS: CYANOCOBALAMIN 500 MCG TABLET PO SCH (09:44)
[2020-03-30] MEDS: ASPIRIN 81 MG TAB.CHEW PO SCH (09:44)
[2020-03-30] MEDS: FOLIC ACID 1 MG TABLET PO SCH (09:44)
[2020-03-30] MEDS: clonazePAM 1 MG TABLET PO SCH ×2 (09:44→16:07)
[2020-03-30] MEDS: LEVETIRACETAM (250 MG) 250 MG TABLET PO SCH ×2 (09:44→16:07)
[2020-03-30] MEDS: ENOXAPARIN SODIUM 40 MG/0.4 ML DISP.SYRIN SQ SCH (09:54)
[2020-03-30 10:25] LABS: LYMPHOCYTES % (MANUAL) 13 % (16-48); MONOCYTES % (MANUAL) 31 % (0-11.0); NEUTROPHILS % (MANUAL) 56 (42-76)
[2020-03-30] MEDS ORDERED: POTASSIUM CHLORIDE 20 MEQ TAB.PRT.SR PO SCH (10:30)
[2020-03-30] MEDS ORDERED: DEXA6TAB6 PO (14:22)
--- NOTE | 2020-03-30 19:30 | NUR ---
CHANGE OF SHIFT REPORT PT RESTING COMFORTABLY IN BED. NO S/S OR C/O PAIN OR DISTRESS NOTED. SIDE RAILS UP X2, CALL LIGHT LEFT WITHIN REACH. PT KEPT CLEAN, DRY, AND COMFORTABLE. NO SIGNIFICANT CHANGES SINCE PREVIOUS SHIFT. REPORT GIVEN TO KESHIA PERRY.
[2020-03-30 20:00] VITALS: BP 119/78
--- NOTE | 2020-03-30 20:00 | NUR ---
MS/TELE/RN RECEIVED PATIENT ON BED AWAKE, ALERT, ORIENTED X 1, COMFORTABLE, NO C/O PAIN, NO DISTRESS NOTED, CALL LIGHT IN REACH. PATIENT IS SCHEDULED TO BE DISCHARGED TONIGHT TO [facility], WAITING FOR THE AMBULANCE FOR BOOK CLEANER.
--- NOTE | 2020-03-30 21:47 | NUR ---
MS2/RN AMBULANCE IS HERE TO SUPERVISOR MILL THE PATIENT, PER AMBULANCE VITAL SIGNS PATIENT HAS TEMP 100.5. CALLED THE [facility] TO REPORT THE TEMP, SPOKE TO [place] ORTIZ, PER DIANA, PER HER CLERICAL ADJUSTER, THEY CAN NOT ACCEPT THE PATIENT AT THIS TIME WITH THAT TEMP. NOTIFIED NOLBERTO EDMONDSON NP, RECEIVED ORDER TO KEEP THE PATIENT TONIGHT SINCE THE FACILITY DOES NOT WANT TO ACCEPT HIM.
[2020-03-30] MEDS: SENNOSIDES 8.6 MG TABLET PO SCH (22:32)
[2020-03-30] MEDS: ATORVASTATIN 10 MG TABLET PO SCH (22:33)
[2020-03-30] MEDS: ESCITALOPRAM OXALATE (10 MG) 10 MG TABLET PO SCH (22:33)
--- NOTE | 2020-03-31 01:07 | NUR ---
MS2/RN PATIENT IS SLEEPING AT THIS TIME, APPEAR COMFORTABLE, NO DISTRESS NOTED, CALL LIGHT IN REACH. WILL CONTINUE TO MONITOR.
[2020-03-31] MEDS: GABAPENTIN 300 MG CAPSULE PO SCH ×2 (05:24→13:42)
--- NOTE | 2020-03-31 06:43 | NUR ---
MS2/RN PATIENT IS AWAKE, COMFORTABLE, NO DISTRESS NOTED, CALL LIGHT IN REACH, ALL NEEDS ATTENDED AT THIS TIME, WILL CONTINUE TO MONITOR.
[2020-03-31 07:18] LABS: BASOPHILS % (AUTO) 0.1 % (0.0-2.0); HEMATOCRIT 44 % (39-51); HEMOGLOBIN 14.5 g/dL (13.5-17.5); LYMPHOCYTES # (AUTO) 2.2 /CMM (0.8-4.8); LYMPHOCYTES % (AUTO) 29.2 % (20.0-44.0); MEAN CORPUSCULAR HGB CONC 33 g/dl (31.0-36.0); MEAN CORPUSCULAR VOLUME 98 fL (80-96); MONOCYTES # (AUTO) 1.4 /CMM (0.1-1.30); MONOCYTES % (AUTO) 19.3 % (2.0-12.0); NEUTROPHILS # (AUTO) 3.8 /CMM (1.8-8.9); NEUTROPHILS % (AUTO) 51.4 % (43.0-81.0); PLATELET COUNT (AUTO) 193 /CMM (150-450); RED BLOOD CELL COUNT(AUTO) 4.51 MIL/uL (4.5-6.0); WHITE BLOOD COUNT (AUTO) 7.4 K/uL (4.3-11.0)
[2020-03-31 07:47] LABS: CALCIUM, SERUM 8.6 mg/dL (8.5-10.1); MAGNESIUM 1.9 mg/dL (1.8-2.4); POTASSIUM 3.8 mmol/L (3.5-5.1)
[2020-03-31 08:00] VITALS: BP 120/77
--- NOTE | 2020-03-31 08:00 | NUR ---
MS RN OPENING NOTE RECEIVED PATIENT IN BED. A/OX2. PATIENT WAS SHOUTING DURING THE BEGINNING OF THE SHIFT BUT WAS CALM IN BED AFTER PERICARE DONE POST LARGE BM. ON OXYGEN 2L PER NASAL CANNULA. RESPIRATIONS ARE EVEN AND UNLABORED. NO S/S SOB NOTED. NO C/O PAIN AT THIS TIME. IN NO APPARENT DISTRESS. PT ON BED IS LOW AND LOCKED, HOB ELEVATED IN SEMI FOWLERS, SIDE RAILS UP X3, CALL LIGHT WITHIN REACH. WILL CONTINUE TO MONITOR
--- NOTE | 2020-03-31 08:10 | NUR ---
PT HAS PENDING DISCHARGE DUE TO FEVER TEMP 103.1.TYLENOL 650 MG PO AND COOLING MEASURES GIVEN.ENCOURAGED INCREASE FLUID INTAKE.
--- NOTE | 2020-03-31 09:00 | NUR ---
RECHECKED PT'S TEMP 100.3 AT THIS TIME.CONTINUOUS COOLING MEASURES RENDERED.
[2020-03-31] MEDS: ASPIRIN 81 MG TAB.CHEW PO SCH (09:01)
[2020-03-31] MEDS: CYANOCOBALAMIN 500 MCG TABLET PO SCH (09:02)
[2020-03-31] MEDS: clonazePAM 1 MG TABLET PO SCH ×2 (09:02→16:39)
[2020-03-31] MEDS: ACETAMINOPHEN 325 MG TABLET PO PRN (09:02)
[2020-03-31] MEDS: DEXAMETHASONE SOD PHOSPHATE 4 MG/ML VIAL IV SCH (09:02)
[2020-03-31] MEDS: LEVETIRACETAM (250 MG) 250 MG TABLET PO SCH ×2 (09:02→16:40)
[2020-03-31] MEDS: FOLIC ACID 1 MG TABLET PO SCH (09:02)
[2020-03-31] MEDS: ENOXAPARIN SODIUM 40 MG/0.4 ML DISP.SYRIN SQ SCH (09:04)
[2020-03-31 12:10] LABS: LYMPHOCYTES % (MANUAL) 36 % (16-48); MONOCYTES % (MANUAL) 11 % (0-11.0); NEUTROPHILS % (MANUAL) 53 (42-76)
--- NOTE | 2020-03-31 14:00 | NUR ---
Rechecked pt's temp and it was 97.7.Encouraged increase fluid intake.Notified case repairer,Carol Ann.
[2020-03-31 16:00] VITALS: BP 103/68
--- NOTE | 2020-03-31 18:09 | NUR ---
CONTINUOUS IMPROVEMENT MANAGER NOTE PT DISCHARGED TO [facility] REPORT GIVEN TO DIANA FRUIT AND VEGETABLE PACKER OF THE SNF. PT WAS FEBRILE. TEMP OF 97.5 AT 1600. A/O X1 AND COOPERATIVE. PT IS ON 2L NC WITH O2 SAT OF 92-94%. NO SIGNS OF RESPIRATORY DISTRESS. CURRENTLY ON BEDREST. SKIN IS INTACT. HEP LOCK REMOVED FROM LEFT FOREARM, NO SIGNS OF BLEEDING. NAME BAND REMOVED BEFORE DISCHARGE.
== END 2020-03-31 18:00 | DRG 137 ==
LOC: ER 13:35 → UNDOADMIN 19:59 → TRANSITION 19:59 → TELE2 03-26 03:24 → TRANSITION 03-26 03:24 → TELE2 03-29 03:05 → MEDSG2 03-29 17:43 → UNDODISIN 03-31 18:00
PROVIDERS: ADMIT Registered Nurse; ATTEND Nurse Practitioner Acute Care
DX: U07.1 COVID-19 (principal); J12.82 Pneumonia due to coronavirus disease 2019; J96.01 Acute respiratory failure with hypoxia; Z88.0 Allergy status to penicillin; E66.9 Obesity, unspecified; D68.69 Other thrombophilia; E11.9 Type 2 diabetes mellitus without complications; E78.5 Hyperlipidemia, unspecified; F41.9 Anxiety disorder, unspecified; I10 Essential (primary) hypertension; Z79.82 Long term (current) use of aspirin; Z86.61 Personal history of infections of the central nervous system; F03.90 Unspecified dementia, unspecified severity, without behavioral disturbance, psychotic disturbance, mood disturbance, and anxiety; F09 Unspecified mental disorder due to known physiological condition; Z68.28 Body mass index [BMI] 28.0-28.9, adult; R53.1 Weakness
CPT/HCPCS: 36415; 71045-TC; 80048-TC; 80053-TC; 80061-TC; 80076-TC; 82550-TC; 82728-TC; 83605-TC; 83615-TC; 83735-TC; 83880; 84100-TC; 84443-TC; 84484-TC; 85025-TC; 85378-TC; 85730-TC; 86140-TC; 87040-TC; 87081-TC; 92507-TC; 92526; 92611-TC; A4216; C9803; G0378; J0696; J1100; J1630; J1650; J1956; J2060; J7030; J7060; U0003

== ENCOUNTER 2022-05-06 14:51 | Inpatient (IN) | payer MEDICAID, OTHER ==
[~2022-05-06] VITALS: Ht 180.3 cm; Wt 84.0 kg
--- NOTE | 2022-05-06 11:46 | NUR ---
DEVELOPER AUTOMATIC NOTES GOT ORDERED FROM RASHAUN FERNANDO /SERGIO PIMENTELU MEDROL 60MG IVP X1 AND ALSO ORDERED CXR AND PROCAL. FOR LAB. UPGRADE PATIENT TELE WELL. Addendum: 05/07/22 at 0227 by DELTA MELCHORN WRONG TIME ENTERED.
[~2022-05-06 14:51] MED LIST changes: +ACET325T53 PO; +ATOR10TA PO; +BISA10SU11 RC; +CLON1TAB PO; +CYAN-51 PO; +DEXA6TAB6 PO; -DIVA500T2 PO; -DOCU-141 PO; +ESCI10TA PO; +FOLI0.8C PO; +GABA300C PO; -HYDR-4384 PO; -LEVO750T21 PO; -LORA-259 PO; +MAGN400O6 PO; +NA P133E RC; -PRAV20TA PO; +SENN-175 PO
--- NOTE | 2022-05-06 15:50 | NUR ---
Patient AOx4, able to express his concerns. Patient states he regularly uses diapers. No signs of distress.
[2022-05-06] MEDS ORDERED: ASPI-1169 PO (16:12)
[2022-05-06] MEDS ORDERED: CARV12.52 PO (16:12)
[2022-05-06] MEDS ORDERED: DOCU-141 PO (16:12)
[2022-05-06] MEDS ORDERED: LORA-259 PO (16:12)
[2022-05-06] MEDS ORDERED: TAMS-12 PO (16:12)
[2022-05-06] MEDS ORDERED: QUET25TA PO (16:12)
[2022-05-06] MEDS ORDERED: LIDOCAINE 2% JEL UROJET 10 ML MM ONE (16:14)
--- NOTE | 2022-05-06 16:20 | NUR ---
attempted to insert gonzalez catheter to collect urine, resistance noted. no urine sample collected. dr carrillo made aware.
[2022-05-06] MEDS ORDERED: CIPROFLOXACIN IV RTU 400 MG in PREMIX 1 EA IV STA (19:11)
[2022-05-06] MEDS ORDERED: CIPROFLOXACIN IV RTU 200 ML IV ONE (19:31)
[2022-05-06 19:38] LABS: CREATININE 1.5 mg/dL (0.6-1.3)
--- NOTE | 2022-05-06 19:39 | NUR ---
COVID ANTIGEN SWAB COLLECTED AND SENT TO LAB
[2022-05-06 19:46] LABS: ALBUMIN 3.4 g/dL (3.4-5.0); BILIRUBIN,DIRECT 0.2 mg/dL (0.0-0.2); BILIRUBIN,TOTAL 0.6 mg/dL (0.2-1.0); TOTAL PROTEIN, SERUM 7.8 g/dL (6.4-8.2)
[2022-05-06 19:59] LABS: EOSINOPHILS % (AUTO) 0.2 % (0.0-6.0); HEMATOCRIT 37 % (39-51); HEMOGLOBIN 12.4 g/dL (13.5-17.5); LYMPHOCYTES # (AUTO) 0.4 K/uL (0.8-4.8); LYMPHOCYTES % (AUTO) 2.3 % (20.0-44.0); MEAN CORPUSCULAR HGB CONC 34 g/dl (31.0-36.0); MEAN CORPUSCULAR VOLUME 97 fL (80-96); MONOCYTES # (AUTO) 1.2 K/uL (0.1-1.30); MONOCYTES % (AUTO) 7.4 % (2.0-12.0); NEUTROPHILS # (AUTO) 14.5 K/uL (1.8-8.9); NEUTROPHILS % (AUTO) 90.1 % (43.0-81.0); PLATELET COUNT (AUTO) 265 K/uL (150-450); RED BLOOD CELL COUNT(AUTO) 3.81 MIL/uL (4.5-6.0); WHITE BLOOD COUNT (AUTO) 16.1 K/uL (4.3-11.0)
--- NOTE | 2022-05-06 20:20 | NUR ---
CONDOM CATHETER SECURED; DRAINING URINE WELL.
--- NOTE | 2022-05-06 20:26 | NUR ---
URINE COLLECTED AND SENT TO LAB
[2022-05-06 20:59] LABS: BAND % (MANUAL) 8 % (0.0-5.0); LYMPHOCYTES % (MANUAL) 4 % (16-48); MONOCYTES % (MANUAL) 4 % (0-11.0); NEUTROPHILS % (MANUAL) 84 (42-76)
--- NOTE | 2022-05-06 21:10 | NUR ---
RN NEUROLOGY AT PT'S BEDSIDE
[2022-05-06 21:30] LABS: BILIRUBIN,URINE 1+ (NEGATIVE); COLOR,URINE YELLOW (YELLOW); LEUKOCYTE ESTERASE ,URINE 3+ (NEGATIVE); NITRITE, URINE NEGATIVE (NEGATIVE); PH,URINE 8.5 (5.0-8.0); PROTEIN,URINE 2+ mg/dl (NEGATIVE); UGLUCOSE NEGATIVE (NEGATIVE); UROBILINOGEN,URINE 0.2 EU/dL (0.2)
[2022-05-06] MEDS ORDERED: ONDANSETRON HCL/PF 4 MG/2 ML VIAL IVP PRN (21:30)
[2022-05-06] MEDS ORDERED: BISACODYL SUPP (10 MG) 10 MG/SUPP.RECT SUPP.RECT RC PRN (21:30)
[2022-05-06] MEDS ORDERED: MAGNESIUM HYDROXIDE 30 ML UDC PO PRN ×2 (21:30)
[2022-05-06] MEDS ORDERED: ACETAMINOPHEN 325 MG TABLET PO PRN (21:30)
[2022-05-06] MEDS ORDERED: Z GUARD REMEDY 4 OZ OINT TP PRN (21:30)
[2022-05-06] MEDS ORDERED: MAG HYDROX/AL HYDROX/SIMETH 30 ML UDC PO PRN (21:30)
--- NOTE | 2022-05-06 21:54 | NUR ---
AWAITING CALL BACK FROM 3W RN FOR THANH
[2022-05-06] MEDS ORDERED: LORAZEPAM 0.5 MG TABLET PO PRN (22:00)
--- NOTE | 2022-05-06 22:19 | NUR ---
REPORT GIVEN TO 3W RN FOR THANH
--- NOTE | 2022-05-06 22:30 | NUR ---
TELE KNIFE EDGER INITIAL NOTES RECEIVED PT FROM ER VIA [facility] ACCOMPANIED BY HAND GLOVE CLEANER. DX OF UTI AND ENCEPHALOPATY . PT IS ALERT ORIENTED AND CONFUSION, ANXIOUS NOTED. RE-ORIENTED WHERE HE AT AND HOW TO USED THE CALL LIGHT SYSTEM. ASSESSMENT DONE AND RECORDED. NOTICED PT AUDIBLE WHEEZING SO I PUT O2 AT 2LITERS VIA NASAL CANULA AND NOTIFY BLOOD BANK TECHNOLOGIST MD RIGHT AWAY.
[2022-05-06 22:35] LABS: RBC,URINE 51-80 /HPF (0-2)
[2022-05-06 22:36] LABS: BACTERIA,URINE 3+ /HPF (None Seen); SQUAMOUS EPITHELIAL CELL,UR 0-2 /HPF (None Seen); WBC,URINE 81-100 /HPF (0-3)
--- NOTE | 2022-05-06 22:39 | NUR ---
PT TRANSFERRED TO 3 VIA HOSPITAL PROTOCOL. VSS. ALL BELONGINGS WITH PT.
[2022-05-06] MEDS: SENNOSIDES 8.6 MG TABLET PO SCH (23:12)
[2022-05-06] MEDS: TAMSULOSIN 0.4 MG CAP.SR.24H PO SCH (23:12)
[2022-05-06] MEDS: ESCITALOPRAM OXALATE (10 MG) 10 MG TABLET PO SCH (23:14)
[2022-05-06] MEDS: ATORVASTATIN 10 MG TABLET PO SCH (23:15)
[2022-05-06] MEDS: DOXAZOSIN MESYLATE (4 MG) 4 MG TABLET PO SCH (23:22)
[2022-05-06] MEDS: IV NS 0.9% 1,000 ML IV PRN (23:31)
--- NOTE | 2022-05-06 23:46 | NUR ---
COMMUNICATIONS AND SIGNALS SUPERVISOR NOTES GOT ORDERED SOLU MEDROL 60MG X1 AND SHE ALSO ORDERED CXR AND LAB PROCAL FROM KASSIE RODNEY. .
[2022-05-07] MEDS ORDERED: methylPREDNISolone SOD SUCC 125 MG/2ML VIAL IV ONE
--- NOTE | 2022-05-07 00:20 | NUR ---
TELE PANEL GLUER NOTES SEEN BY KASSIE RODNEY /TANGIBLE PERSONAL PROPERTY APPRAISER AND SHE ORDERED BREATHING TREATMENT , ANOTHER SOLU MEDROL AND WAITING FOR CXR AND LAB RESULT. TELE SINUS TACH 113, PER MONITOR . KEPT HIM WARM AND COMFORTABLE AT ALL TIMES. WILL CONTINUE MONITORING.
[2022-05-07] MEDS ORDERED: methylPREDNISolone SOD SUCC 40 MG/ML VIAL IV ONE (00:30)
[2022-05-07] MEDS ORDERED: CLINDAMYCIN IV RTU IN D5W 900 MG/50 ML PIGGYBACK IV SCH (01:00)
[2022-05-07] MEDS: ALBUTEROL FS 2.5 MG/0.5 ML VIAL.NEB NEB SCH ×8 (01:03→23:17)
--- NOTE | 2022-05-07 01:03 | NUR ---
TELE STEAM CONDITIONING OPERATOR NOTES BREATHING ADMINISTERED BY RT ORDERED. CONTINOUS PULSE OX SET UP WELL TO MONITOR O2 SAT OF THE PATIENT. KEPT HIM WARM AND COMFORTABLE . CALL LIGHT AT REACH.
[2022-05-07 01:08] VITALS: BP 144/77
[2022-05-07] MEDS ORDERED: METRONIDAZOLE 500MG/ NS 100ML 100 ML IV ONE (01:56)
[2022-05-07] MEDS ORDERED: CLINDAMYCIN 900 MG/6 ML VIAL ONE (01:57)
[2022-05-07] MEDS: METRONIDAZOLE 500MG/ NS 100ML 500 MG in PREMIX 1 EA IV SCH ×3 (02:06→22:23)
[2022-05-07] MEDS: CLINDAMYCIN IV RTU IN D5W 50 ML IV SCH ×3 (02:55→20:58)
[2022-05-07] MEDS: IPRATROPIUM NEB FS 0.5 MG/2.5 ML AMPUL.NEB NEB SCH ×7 (03:45→23:16)
[2022-05-07] MEDS: methylPREDNISolone SOD SUCC 40 MG/ML VIAL IV SCH ×3 (05:34→20:51)
[2022-05-07] MEDS: GABAPENTIN 300 MG CAPSULE PO SCH ×3 (05:38→20:52)
--- NOTE | 2022-05-07 06:57 | NUR ---
TELE TOP FORMER CLOSING NOTES PT REMAINS SLEEPING COMFORTABLY IN BED WITHOUT ANY ACUTE DISTRESS NOTED AT THIS TIME EVEN ON ROOM AIR. HE REMOVED HIS NASAL CANULA EVEN YOU TOLD HIM THE PURPOSE OF IT. IVF OF NS AT 50 ML/HR STILL INFUSING ON HIS LEFT HAND, ALL DUE MEDS GIVEN AND ALL NEEDS MET. KEPT HIM WARM AND COMFORTABLE AT ALL TIMES. TELE SINUS TACH HEART RATE 109 PER MONITOR. BED IN LOW AND LOCK IN POSITION WITH SIDE RAILS X2 UP AND BED ALARM SET FOR SAFETY. WILL ENDORSE TO AM NURSE FOR CONTINUITY OF CARE. PLACE CALL LIGHT AT REACH.
--- NOTE | 2022-05-07 07:20 | NUR ---
DIRECTOR ALUMNI RELATIONS OPENING NOTE RECEIVED PATIENT ALERT AND ORIENTED X 2, CONVERSANT BUT APPEARS VERY SLEEPY. PATIENT IS ON OXYGEN AT 2LPM VIA NASAL CANULA, WITH EQUAL AND UNLABORED BREATHING WITH NO SIGNS OF RESPIRATORY DISTRESS WITH OCCASIONAL WHEEZING, BUT WITH BREATHING TREATMENT ORDERED. PATIENT WITH IV ACCESS ON THE LEFT HAND G 20 WITH NS RUNNING AT 50ML/HR INFUSING WELL. ON TELE MONITOR READING 110 BPM. MAINTAINED ON NORMAL BODY ALIGNMENT. COMFORT MEASURES PROVIDED. SAFETY MEASURES ENSURED WITH BED IN LOW AND LOCK IN POSITION WITH SIDE RAILS X2 UP AND BED ALARM SET FOR SAFETY. CALL LIGHT WITHIN REACH AT ALL TIMES. WILL CONTINUE WITH PLAN OF CARE.
[2022-05-07] MEDS: PANTOPRAZOLE 40 MG TABLET.DR PO SCH (07:57)
[2022-05-07 08:14] VITALS: BP 82/52
[2022-05-07] MEDS: FOLIC ACID 1 MG TABLET PO SCH (08:29)
[2022-05-07] MEDS: DOCUSATE SODIUM 100 MG CAPSULE PO SCH (08:29)
[2022-05-07] MEDS: LEVETIRACETAM (250 MG) 250 MG TABLET PO SCH ×2 (08:29→20:52)
[2022-05-07] MEDS: NITROFURANTOIN/MONOHYDRATE MACROCRYSTALS 100 MG CAPSULE PO SCH ×2 (08:30→20:52)
[2022-05-07] MEDS: CARVEDILOL 12.5 MG TABLET PO SCH ×2 (08:30→21:00)
[2022-05-07] MEDS: CYANOCOBALAMIN 500 MCG TABLET PO SCH (08:30)
[2022-05-07] MEDS: QUETIAPINE FUMARATE 25 MG TABLET PO SCH (08:31)
[2022-05-07] MEDS: clonazePAM 0.5 MG TABLET PO SCH ×2 (08:31→17:18)
[2022-05-07] MEDS: HEPARIN SODIUM, PORCINE 5000 UNITS/1 ML VIAL SQ SCH ×2 (08:39→20:56)
[2022-05-07 09:39] LABS: HEMATOCRIT 34 % (39-51); LYMPHOCYTES # (AUTO) 0.5 K/uL (0.8-4.8); LYMPHOCYTES % (AUTO) 2.9 % (20.0-44.0); MEAN CORPUSCULAR HGB CONC 32 g/dl (31.0-36.0); MEAN CORPUSCULAR VOLUME 98 fL (80-96); MONOCYTES # (AUTO) 0.2 K/uL (0.1-1.30); NEUTROPHILS # (AUTO) 16.8 K/uL (1.8-8.9); NEUTROPHILS % (AUTO) 96.1 % (43.0-81.0); PLATELET COUNT (AUTO) 219 K/uL (150-450); RED BLOOD CELL COUNT(AUTO) 3.48 MIL/uL (4.5-6.0); WHITE BLOOD COUNT (AUTO) 17.5 K/uL (4.3-11.0)
[2022-05-07 09:54] LABS: CALCIUM, SERUM 8.5 mg/dL (8.5-10.1); CREATININE 1.3 mg/dL (0.6-1.3); MAGNESIUM 1.8 mg/dL (1.8-2.4); PHOSPHORUS 2.9 mg/dL (2.5-4.9); POTASSIUM 4.3 mmol/L (3.5-5.1)
[2022-05-07 10:05] LABS: THYROID STIMULATING HORMONE 0.174 uIU/mL (0.358-3.74)
[2022-05-07 16:03] VITALS: BP 103/59
[2022-05-07] MEDS: ASPIRIN 81 MG TAB.CHEW PO SCH (17:18)
--- NOTE | 2022-05-07 17:30 | NUR ---
INTERNAL MEDICINE NURSE PRACTITIONER NOTE ENDORSED PATIENT TO [place] FIELD FOR CONTINUITY OF CARE. IN STABLE CONDITION. LATEST IV SITE ON THE RIGHT HAND G22, WITH NS RUNNING AT 50ML/HR, INFUSING WELL.
--- NOTE | 2022-05-07 18:32 | NUR ---
RN CLOSING NOTE- PT IS ALERT AND ORIENTED X 2,. PATIENT IS ON OXYGEN AT 2LPM VIA NASAL CANULA, SATS 96%, NEBS PER ORDERS, PATIENT WITH IV ACCESS ON THE LEFT HAND G 20 WITH NS RUNNING AT 50ML/HR INFUSING WELL. ON TELE MONITOR READING 107 BPM. COMFORT MEASURES PROVIDED. SAFETY MEASURES ENSURED WITH BED IN LOW AND LOCK IN POSITION WITH SIDE RAILS X2 UP AND BED ALARM SET FOR SAFETY. CALL LIGHT WITHIN REACH AT ALL TIMES. MONITOR / ASSIST
--- NOTE | 2022-05-07 19:45 | NUR ---
TELERN FULLY AWAKE, NO SOB. REFUSED 94 TO 98% SATURATION ON RA. NO COUGHING. HL PATENT. SR OF THE MONTIOR. POSITIONED PER PTS COMFORT. FOLLOWS INSTRUCTIONS NEEDED TO BE REMINDED FREQ. TO CONTINUE
[2022-05-07 20:00] VITALS: BP 93/74
--- NOTE | 2022-05-07 21:00 | NUR ---
TELERN DUE MEDS GIVEN, ASSISTED SNACKS. NO DIFFICULTY SWALLOWING, [place] ELEVATED AT ALL TIMES. 02 OFF REFUSED. ON CONTINOUS PULSE OX SATURATING 98&.CONTINUED MONITORING
[2022-05-07] MEDS: DOXAZOSIN MESYLATE (4 MG) 4 MG TABLET PO SCH (22:00)
--- NOTE | 2022-05-07 22:00 | NUR ---
TELERN LATE ENTRY PATIENT ON TELE OF THIS TIME. SR TO ST ON THE MONITOR. FURTHER ORDRS RECEIVED.
[2022-05-07] MEDS: ATORVASTATIN 10 MG TABLET PO SCH (22:24)
[2022-05-07] MEDS: SENNOSIDES 8.6 MG TABLET PO SCH (22:24)
[2022-05-07] MEDS: TAMSULOSIN 0.4 MG CAP.SR.24H PO SCH (22:24)
[2022-05-07] MEDS: ESCITALOPRAM OXALATE (10 MG) 10 MG TABLET PO SCH (22:24)
[2022-05-08 00:30] VITALS: BP 110/73
[2022-05-08] MEDS: IPRATROPIUM NEB FS 0.5 MG/2.5 ML AMPUL.NEB NEB SCH ×6 (03:30→23:30)
[2022-05-08] MEDS: ALBUTEROL FS 2.5 MG/0.5 ML VIAL.NEB NEB SCH ×6 (03:30→23:30)
[2022-05-08] MEDS: CLINDAMYCIN IV RTU IN D5W 50 ML IV SCH ×3 (04:52→21:16)
[2022-05-08] MEDS: methylPREDNISolone SOD SUCC 40 MG/ML VIAL IV SCH ×2 (04:54→13:42)
[2022-05-08] MEDS: GABAPENTIN 300 MG CAPSULE PO SCH ×3 (04:55→20:27)
[2022-05-08 05:56] VITALS: BP 118/68
--- NOTE | 2022-05-08 05:58 | NUR ---
TELERN HAD ANOTHER SOFT LARGE BM. KEPT DRY CLEAN AND COMFORTABLE. DUE MEDS ADMINISTERED. CONTINUED MONITORING
[2022-05-08 07:00] VITALS: BP 110/72
[2022-05-08] MEDS: METRONIDAZOLE 500MG/ NS 100ML 500 MG in PREMIX 1 EA IV SCH ×3 (07:01→21:58)
--- NOTE | 2022-05-08 07:30 | NUR ---
JUDICIAL CLERK NOTES PT IN BED, AWAKE, ALERT, EATING BREAKFAST, NO COMPLAINT AT THIS TIME, BREATHING PATTERN NORMAL, CALL LIGHT WITHIN REACH.
[2022-05-08] MEDS: clonazePAM 0.5 MG TABLET PO SCH ×2 (08:53→17:13)
[2022-05-08] MEDS: FOLIC ACID 1 MG TABLET PO SCH (08:53)
[2022-05-08] MEDS: PANTOPRAZOLE 40 MG TABLET.DR PO SCH (08:53)
[2022-05-08] MEDS: LEVETIRACETAM (250 MG) 250 MG TABLET PO SCH ×2 (08:53→20:27)
[2022-05-08] MEDS: CYANOCOBALAMIN 500 MCG TABLET PO SCH (08:53)
[2022-05-08] MEDS: NITROFURANTOIN/MONOHYDRATE MACROCRYSTALS 100 MG CAPSULE PO SCH ×2 (08:53→20:26)
[2022-05-08] MEDS: HEPARIN SODIUM, PORCINE 5000 UNITS/1 ML VIAL SQ SCH ×2 (08:54→21:25)
[2022-05-08] MEDS: QUETIAPINE FUMARATE 25 MG TABLET PO SCH (08:54)
[2022-05-08] MEDS: CARVEDILOL 12.5 MG TABLET PO SCH ×2 (09:00→20:26)
[2022-05-08] MEDS: DOCUSATE SODIUM 100 MG CAPSULE PO SCH (09:00)
[2022-05-08 12:00] VITALS: BP_SYST 105; BP_SYST 143; BP_DIAS 70; BP_DIAS 76
[2022-05-08] MEDS: IV NS 0.9% 1,000 ML IV PRN (15:40)
[2022-05-08 16:00] VITALS: BP 104/71
[2022-05-08] MEDS: ASPIRIN 81 MG TAB.CHEW PO SCH (17:13)
--- NOTE | 2022-05-08 18:14 | NUR ---
BOARD FILLER NOTES PATIENT IN BED, AWAKE AND ALERT, EATING DINNER, DENIES PAIN, BREATHING PATTERN NORMAL, TOLERATING ROOM AIR, IV FLUIDS INFUSING WELL, PM MEDS GIVEN, PM CARE PROVIDED, KEPT CALL LIGHT WITHIN REACH.
[2022-05-08 20:23] VITALS: BP 114/79
[2022-05-08] MEDS: SENNOSIDES 8.6 MG TABLET PO SCH (21:42)
[2022-05-08] MEDS: ESCITALOPRAM OXALATE (10 MG) 10 MG TABLET PO SCH (21:42)
[2022-05-08] MEDS: ATORVASTATIN 10 MG TABLET PO SCH (21:42)
[2022-05-08] MEDS: TAMSULOSIN 0.4 MG CAP.SR.24H PO SCH (21:42)
[2022-05-08] MEDS: DOXAZOSIN MESYLATE (4 MG) 4 MG TABLET PO SCH (21:47)
[2022-05-09 00:12] VITALS: BP 101/69
[2022-05-09] MEDS: ALBUTEROL FS 2.5 MG/0.5 ML VIAL.NEB NEB SCH ×6 (03:30→23:40)
[2022-05-09] MEDS: IPRATROPIUM NEB FS 0.5 MG/2.5 ML AMPUL.NEB NEB SCH ×6 (03:30→23:40)
[2022-05-09] MEDS: CLINDAMYCIN IV RTU IN D5W 50 ML IV SCH ×3 (04:41→20:29)
[2022-05-09] MEDS: GABAPENTIN 300 MG CAPSULE PO SCH ×3 (04:51→20:29)
[2022-05-09] MEDS: METRONIDAZOLE 500MG/ NS 100ML 500 MG in PREMIX 1 EA IV SCH ×3 (05:23→21:42)
--- NOTE | 2022-05-09 06:24 | NUR ---
END OF SHIFT REPORT Patient in bed, Alert Oriented x2 Forgetful, Confused. Oxygen sat high 90's in RA. Sinus rhythm in the Tele monitor HR 70's. KATHERINE midline intact, IVF continuous. Good appetite. On IV abx. Afebrile. Patient denies pain, no N/V. Incontinent care done. Fall precaution maintained. Plan for cont abx. Steroids, Bronchodilators. Will endorse to oncoming RN.
[2022-05-09 07:00] VITALS: BP 111/77
--- NOTE | 2022-05-09 07:20 | NUR ---
RN OPENING NOTE RECEIVED PATIENT IN BED, ASLEEP. EASILY AROUSED. NO SIGNS OF ACUTE DISTRESS NOTED. ON ROOM AIR, TOLERATING WELL. NO SOB NOTED, BREATHING EVEN AND UNLABORED. NO C/O PAIN OR DISCOMFORT. NOTED WITH MIDLINE ON RIGHT UPPER ARM #18G, INTACT AND PATENT WITH NS @50 ML/HR RUNNING. ON TELE MONITOR, NO S/SX OF CARDIAC DISTRESS NOTED. SAFETY MEASURE IN PLACE. BED IN LOW AND LOCKED POSITION, SIDE RAILS UP X2, CALL LIGHT PLACED WITHIN EASY REACH. WILL CONTINUE TO MONITOR PATIENT.
[2022-05-09 07:30] LABS: CREATININE 0.9 mg/dL (0.6-1.3); MAGNESIUM 2.1 mg/dL (1.8-2.4); PHOSPHORUS 2.6 mg/dL (2.5-4.9); POTASSIUM 4.1 mmol/L (3.5-5.1)
[2022-05-09] MEDS: FOLIC ACID 1 MG TABLET PO SCH (09:06)
[2022-05-09] MEDS: methylPREDNISolone SOD SUCC 40 MG/ML VIAL IV SCH (09:06)
[2022-05-09] MEDS: LEVETIRACETAM (250 MG) 250 MG TABLET PO SCH ×2 (09:06→20:30)
[2022-05-09] MEDS: NITROFURANTOIN/MONOHYDRATE MACROCRYSTALS 100 MG CAPSULE PO SCH ×2 (09:06→20:29)
[2022-05-09] MEDS: QUETIAPINE FUMARATE 25 MG TABLET PO SCH (09:07)
[2022-05-09] MEDS: CYANOCOBALAMIN 500 MCG TABLET PO SCH (09:07)
[2022-05-09] MEDS: HEPARIN SODIUM, PORCINE 5000 UNITS/1 ML VIAL SQ SCH ×2 (09:10→20:32)
[2022-05-09] MEDS: clonazePAM 0.5 MG TABLET PO SCH ×2 (09:11→17:22)
[2022-05-09] MEDS: DOCUSATE SODIUM 100 MG CAPSULE PO SCH (09:11)
[2022-05-09] MEDS: CARVEDILOL 12.5 MG TABLET PO SCH ×2 (09:12→21:00)
[2022-05-09] MEDS: PANTOPRAZOLE 40 MG TABLET.DR PO SCH (09:13)
[2022-05-09 10:32] LABS: BASOPHILS % (AUTO) 0.2 % (0.0-2.0); EOSINOPHILS % (AUTO) 0.1 % (0.0-6.0); HEMATOCRIT 35 % (39-51); HEMOGLOBIN 11.3 g/dL (13.5-17.5); LYMPHOCYTES # (AUTO) 2.1 K/uL (0.8-4.8); MEAN CORPUSCULAR HGB CONC 32 g/dl (31.0-36.0); MEAN CORPUSCULAR VOLUME 98 fL (80-96); MONOCYTES # (AUTO) 1.7 K/uL (0.1-1.30); MONOCYTES % (AUTO) 10.3 % (2.0-12.0); NEUTROPHILS # (AUTO) 12.5 K/uL (1.8-8.9); NEUTROPHILS % (AUTO) 76.4 % (43.0-81.0); PLATELET COUNT (AUTO) 225 K/uL (150-450); RED BLOOD CELL COUNT(AUTO) 3.56 MIL/uL (4.5-6.0); WHITE BLOOD COUNT (AUTO) 16.4 K/uL (4.3-11.0)
--- NOTE | 2022-05-09 11:04 | NUR ---
PROJECT MANAGER PROCESS DEVELOPMENT NOTES RECEIVED PT FROM [place], PT IN BED, ASLEEP, EASY TO AROUSE, ALERT TO SELF, NO SIGN OF PAIN OR DISTRESS, CALL LIGHT WITHIN REACH, IV FLUIDS INFUSING WELL, KEPT COMFORTABLE IN BED.
[2022-05-09 12:00] VITALS: BP 108/71
[2022-05-09 16:00] VITALS: BP 110/74
[2022-05-09] MEDS: ASPIRIN 81 MG TAB.CHEW PO SCH (17:22)
--- NOTE | 2022-05-09 18:38 | NUR ---
LINEN CONTROLLER NOTES PT IN BED, AWAKE, ALERT AND VERBALLY RESPONSIVE, ATE DINNER WITH GOOD APPETITE, NO COMPLAINT OF PAIN, NOT IN DISTRESS, CALL LIGHT WITHIN REACH, PM MEDS GIVEN ORDERED, CALL LIGHT WITHIN REACH, NEEDS ATTENDED.
--- NOTE | 2022-05-09 19:32 | NUR ---
[employer] PLATFORM DEVELOPER OPENING NOTES RECEIVED PATIENT IN BED AWAKE, A/O X2-3 WITH EPISODES OF FORGETFULNESS. ALERT AND VERBALLY RESPONSIVE, IV SITE ON RIGHT UPPER ARM MIDLINE INTACT AND FLUSHING WELL INFUSING NS @ 50ML/HR. NO COMPLAINT OF PAIN, NOT IN DISTRESS NOTED, NO LABORED BREATHING. SAFETY MEASURES IN PLACED; BED LOCKED AND IN LOWEST POSITION, HOB SLIGHTLY ELEVATED, CALL LIGHT AND BED SIDE TABLE WITHIN REACH
[2022-05-09 20:00] VITALS: BP 103/62
[2022-05-09] MEDS: IV NS 0.9% 1,000 ML IV PRN (20:11)
--- NOTE | 2022-05-09 21:07 | NUR ---
RN NOTES BLOOD PRESSURE IS 103/62 WITH A HEART RATE OF 70BPM. BP IS LOW TO ADMINISTER BP MEDICATION
[2022-05-09] MEDS: TAMSULOSIN 0.4 MG CAP.SR.24H PO SCH (21:41)
[2022-05-09] MEDS: ATORVASTATIN 10 MG TABLET PO SCH (21:41)
[2022-05-09] MEDS: DOXAZOSIN MESYLATE (4 MG) 4 MG TABLET PO SCH (21:41)
[2022-05-09] MEDS: ESCITALOPRAM OXALATE (10 MG) 10 MG TABLET PO SCH (21:42)
[2022-05-09] MEDS: SENNOSIDES 8.6 MG TABLET PO SCH (21:42)
[2022-05-10] VITALS: BP 111/81
[2022-05-10] MEDS: IPRATROPIUM NEB FS 0.5 MG/2.5 ML AMPUL.NEB NEB SCH ×4 (02:30→15:53)
[2022-05-10] MEDS: ALBUTEROL FS 2.5 MG/0.5 ML VIAL.NEB NEB SCH ×4 (02:30→15:56)
[2022-05-10 04:00] VITALS: BP 114/68
[2022-05-10] MEDS: GABAPENTIN 300 MG CAPSULE PO SCH ×2 (04:29→12:09)
[2022-05-10] MEDS: CLINDAMYCIN IV RTU IN D5W 50 ML IV SCH ×2 (04:30→12:06)
[2022-05-10] MEDS: METRONIDAZOLE 500MG/ NS 100ML 500 MG in PREMIX 1 EA IV SCH ×2 (05:43→13:08)
[2022-05-10 07:00] VITALS: BP 111/71
--- NOTE | 2022-05-10 07:07 | NUR ---
DIGITAL MARKETER CLOSING NOTES PATIENT IN BED SLEEPING, A/O X2-3 WITH EPISODES OF FORGETFULNESS AND CONFUSION. ALERT AND VERBALLY RESPONSIVE, IV SITE ON RIGHT UPPER ARM MIDLINE INTACT AND FLUSHING WELL INFUSING NS @ 50ML/HR. NO COMPLAINT OF PAIN, NOT IN DISTRESS NOTED, NO LABORED BREATHING. ALL DUE MEDICATIONS GIVEN. ALL NEEDS ARE MET. SAFETY MEASURES IN PLACED; BED LOCKED AND IN LOWEST POSITION, HOB SLIGHTLY ELEVATED, CALL LIGHT AND BED SIDE TABLE WITHIN REACH. WILL ENDORSE TO NEXT SHIFT FOR CONTINUITY OF CARE.
--- NOTE | 2022-05-10 07:11 | NUR ---
SCHOOL CLERK OPENING NOTES RECEIVED PATIENT AWAKE IN BED, A/Ox2-3 EPISODES OF FORGETFULNESS AND CONFUSION. ON ROOM AIR, NO S/S OF RESPIRATORY DISTRESS OR DISCOMFORT. ON TELE MONITORING SHOWING SINUS RHYTHM HR 76. IV ACCESS KATHERINE MIDLINE RUNNING NS @50 ML/HR. INTACT AND PATENT. PATIENT INCONTINENT, BEDBOUND. SKIN INTACT. SAFETY MEASURES IN PLACE: BED LOCKED AND IN LOWEST POSITION, HOB ELEVATED, SIDE RAILS UPx2, CALL LIGHT WITHIN REACH. WILL CONTINUE TO MONITOR.
[2022-05-10] MEDS: DOCUSATE SODIUM 100 MG CAPSULE PO SCH (08:20)
[2022-05-10] MEDS: NITROFURANTOIN/MONOHYDRATE MACROCRYSTALS 100 MG CAPSULE PO SCH (08:20)
[2022-05-10] MEDS: clonazePAM 0.5 MG TABLET PO SCH ×2 (08:20→17:23)
[2022-05-10] MEDS: methylPREDNISolone SOD SUCC 40 MG/ML VIAL IV SCH (08:20)
[2022-05-10] MEDS: LEVETIRACETAM (250 MG) 250 MG TABLET PO SCH (08:20)
[2022-05-10] MEDS: FOLIC ACID 1 MG TABLET PO SCH (08:20)
[2022-05-10] MEDS: PANTOPRAZOLE 40 MG TABLET.DR PO SCH (08:20)
[2022-05-10] MEDS: QUETIAPINE FUMARATE 25 MG TABLET PO SCH (08:21)
[2022-05-10] MEDS: CARVEDILOL 12.5 MG TABLET PO SCH (08:21)
[2022-05-10] MEDS: HEPARIN SODIUM, PORCINE 5000 UNITS/1 ML VIAL SQ SCH (08:22)
[2022-05-10] MEDS: CYANOCOBALAMIN 500 MCG TABLET PO SCH (08:28)
[2022-05-10 09:13] LABS: BASOPHILS % (AUTO) 0.1 % (0.0-2.0); HEMATOCRIT 34 % (39-51); HEMOGLOBIN 11.3 g/dL (13.5-17.5); LYMPHOCYTES # (AUTO) 2.6 K/uL (0.8-4.8); LYMPHOCYTES % (AUTO) 24.9 % (20.0-44.0); MEAN CORPUSCULAR HGB CONC 33 g/dl (31.0-36.0); MEAN CORPUSCULAR VOLUME 97 fL (80-96); NEUTROPHILS # (AUTO) 6.6 K/uL (1.8-8.9); PLATELET COUNT (AUTO) 228 K/uL (150-450); RED BLOOD CELL COUNT(AUTO) 3.52 MIL/uL (4.5-6.0); WHITE BLOOD COUNT (AUTO) 10.3 K/uL (4.3-11.0)
[2022-05-10 09:31] LABS: CREATININE 0.9 mg/dL (0.6-1.3); MAGNESIUM 1.9 mg/dL (1.8-2.4); PHOSPHORUS 2.9 mg/dL (2.5-4.9); POTASSIUM 3.6 mmol/L (3.5-5.1)
[2022-05-10 11:16] VITALS: BP 101/67
[2022-05-10] MEDS ORDERED: NITR100C15 PO (14:19)
[2022-05-10 15:19] VITALS: BP 91/62
[2022-05-10] MEDS: ASPIRIN 81 MG TAB.CHEW PO SCH (17:23)
--- NOTE | 2022-05-10 18:02 | NUR ---
RAILROAD BRAKE REPAIRER NOTES PATIENT D/C TO SNF, REPORT GIVEN TO OR[place]O ORTIZ. PATIENT A/Ox2-3, EPISODES OF FORGETFULNESS AND CONFUSION. PATIENT ABLE TO MAKE NEEDS KNOWN. STABLE ON ROOM AIR NO S/S OF RESPIRATORY DISTRESS. PATIENT IV ACCESS REMOVED PRESSURE DRESSING APPLIED. PATIENT UNABLE TO SIGN FORMS DUE TO NOT BEING ABLE TO HOLD PEN CORRECTLY. PATIENT VERBALIZED UNDERSTANDING TO DISCHARGE INSTRUCTIONS AND HEALTH TEACHINGS. PATIENT SKIN INTACT NO PHOTOS TAKEN. PATIENT LEFT UNIT @1800 ACCOMPANIED BY TWO doormaker. CHARGE NURSE AND MD AWARE OF DISCHARGE.
== END 2022-05-10 18:01 | DRG 720 ==
LOC: ER 14:54 → MED 20:49 → TELE 05-07 00:20
PROVIDERS: ADMIT Registered Nurse; ATTEND Nurse Practitioner Acute Care
PROC: 05H533Z Insertion of Infusion Device into Right Subclavian Vein, Percutaneous Approach (ICD-10-PCS; principal; 2022-05-08)
PROC: B546ZZA Ultrasonography of Right Subclavian Vein, Guidance (ICD-10-PCS; 2022-05-08)
DX: A41.9 Sepsis, unspecified organism (principal); J96.01 Acute respiratory failure with hypoxia; G93.41 Metabolic encephalopathy; J15.9 Unspecified bacterial pneumonia; J90 Pleural effusion, not elsewhere classified; N17.9 Acute kidney failure, unspecified; D63.8 Anemia in other chronic diseases classified elsewhere; E87.1 Hypo-osmolality and hyponatremia; F01.50 Vascular dementia, unspecified severity, without behavioral disturbance, psychotic disturbance, mood disturbance, and anxiety; N39.0 Urinary tract infection, site not specified; R65.20 Severe sepsis without septic shock; E11.9 Type 2 diabetes mellitus without complications; E66.9 Obesity, unspecified; G40.909 Epilepsy, unspecified, not intractable, without status epilepticus; I10 Essential (primary) hypertension; Z79.82 Long term (current) use of aspirin; Z88.0 Allergy status to penicillin; Z91.010 Allergy to peanuts; Z20.822 Contact with and (suspected) exposure to COVID-19; I25.10 Atherosclerotic heart disease of native coronary artery without angina pectoris; Z68.25 Body mass index [BMI] 25.0-25.9, adult; F09 Unspecified mental disorder due to known physiological condition; B96.89 Other specified bacterial agents as the cause of diseases classified elsewhere; J98.01 Acute bronchospasm
CPT/HCPCS: 36410; 36415; 70450-TC; 71045-TC; 80048-TC; 80061-TC; 80076-TC; 80177; 81001; 82962-TC; 83690-TC; 83735-TC; 84100-TC; 84443-TC; 84481; 85025-TC; 87040-TC; 87081-TC; 87086-TC; 94762-TC; 94799-TC; A4216; A4223; A4349; C9803; G0378; J0744; J1644; J2920; J2930; J3490; J7030; J7060